=== PATIENT | male | born 1990 | race Caucasian/White ===

== ENCOUNTER 2024-07-27 23:48 | Inpatient (IN) | payer OTHER ==
[2024-07-28] MEDS ORDERED: LORazepam 2 MG/ML INJ IV PRN (00:41)
[2024-07-28] MEDS: ONDANSETRON 4 MG/2 ML VIAL IVP STA (00:50)
[2024-07-28] MEDS: LORazepam 2 MG/ML INJ IV STA ×4 (00:50→04:38)
[2024-07-28] MEDS: SODIUM CHLORIDE 0.9% 1,000 ML IV STA ×2 (01:03→01:20)
[2024-07-28] MEDS: PANTOPRAZOLE 40 MG/10 ML VIAL IVP STA (01:03)
[2024-07-28 01:55] LABS: Anisocytosis Slight; HCT 36.3 % (39.0-53.0); MCH 32.8 pg (25.0-35.0); MCHC 33.2 g/dL (31.0-37.0); MCV 98.9 fL (80.0-100.0); Macrocytosis Slight; Mean Platelet Volume 11.1; RBC 3.67 m/uL (4.30-5.90); RDW 17.3 % (11.5-15.5); WBC 4.7 k/uL (3.8-10.6)
[2024-07-28 02:06] LABS: ALT 284 U/L (4-49); AST 607 U/L (17-59); African American GFR (CKD) >90 (>60 ml/min/1.73 sqM); Albumin 3.1 g/dL (3.5-5.0); Alkaline Phosphatase 395 U/L (38-126); Amylase 45 U/L (30-110); Anion Gap 2 mmol/L; Blood Urea Nitrogen 11 mg/dL (9-20); Calcium 8.3 mg/dL (8.4-10.2); Carbon Dioxide 27 mmol/L (22-30); Chloride 102 mmol/L (98-107); Glucose 97 mg/dL (74-99); Lipase 560 U/L (23-300); Non-African American GFR(CKD) 81 (>60 ml/min/1.73 sqM); Potassium 3.4 mmol/L (3.5-5.1); Sodium 131 mmol/L (137-145); Total Protein 6.3 g/dL (6.3-8.2)
[2024-07-28 02:23] LABS: Band Neutrophils % 9 %; Lymphocytes # (M) 1.41 k/uL (1.0-4.8); Monocytes # (M) 0.05 k/uL (0-1.0); Neutrophils % (M) 60 %; Nucleated Red Blood Cells 0 /100 WBC (0-0); Total Cells Counted 100
[2024-07-28 02:24] LABS: Anisocytosis (M) Present; Target Cells Present
[2024-07-28 02:25] LABS: Platelet Count 77 k/uL (150-450); Stomatocytes Present
--- NOTE | 2024-07-28 02:58 | XR ---
EXAM: XR Chest, 1 View CLINICAL HISTORY: ITS.REASON XR Reason: abdominal pain TECHNIQUE: Frontal view of the chest. COMPARISON: No relevant prior studies available. FINDINGS: Lungs: Unremarkable. No consolidation. Pleural space: Unremarkable. No pneumothorax. Heart: Unremarkable. No cardiomegaly. Mediastinum: Unremarkable. Normal mediastinal contour. Bones/joints: Unremarkable. No acute fracture. IMPRESSION: No consolidation.
--- NOTE | 2024-07-28 02:58 | CT ---
EXAM: CT Head Without Intravenous Contrast CLINICAL HISTORY: ITS.REASON CT Reason: confusion, alcohol withdrawals TECHNIQUE: Axial computed tomography images of the head/brain without intravenous contrast. CTDI is 49.1 mGy and DLP is 1168.4 mGy-cm. This CT exam was performed using one or more of the following dose reduction techniques: automated exposure control, adjustment of the mA and/or kV according to patient size, and/or use of iterative reconstruction technique. COMPARISON: No relevant prior studies available. FINDINGS: No acute intracranial hemorrhage. No midline shift or mass effect. The territorial haines-white matter differentiation is maintained throughout. Age-related cerebral volume loss. Periventricular and subcortical white matter hypoattenuation, consistent with chronic microangiopathy. The visualized orbits appear grossly unremarkable. The calvarium is intact. The visualized paranasal sinuses and mastoid air cells are grossly clear. IMPRESSION: No acute intracranial hemorrhage, midline shift, or mass effect.
[2024-07-28 03:25] LABS: Appearance,Urine Clear (Clear); Bilirubin,Urine 1+ (Negative); Blood,Urine Moderate (Negative); Color,Urine Dark Yellow; Glucose,Urine (UA) Negative (Negative); Ketones,Urine Negative (Negative); Leukocyte Esterase,Urine Negative (Negative); Mucus,Urine Rare /hpf; Nitrite,Urine Negative (Negative); PH, Urine 7.5 (5.0-8.0); Protein,Urine Trace (Negative); RBC,Urine 141 /hpf (0-5); Specific Gravity,Urine 1.022 (1.001-1.035); WBC,Urine 1 /hpf (0-5)
[2024-07-28] MEDS ORDERED: ONDANSETRON 4 MG/2 ML VIAL IVP PRN (03:25)
[2024-07-28] MEDS ORDERED: IBUPROFEN 400 MG TAB PO PRN (03:25)
[2024-07-28] MEDS: LORazepam 2 MG/ML INJ IV PRN ×2 (03:25→08:39)
[2024-07-28] MEDS ORDERED: NALOXONE 0.4 MG/ML 1 ML VIAL IV PRN (03:25)
--- NOTE | 2024-07-28 03:37 | ED ---
General Adult HPI - General Chief complaint: Alcohol Stated complaint: ETOH Time Seen by Provider: 07/28/24 00:31 Source: patient, family, RN notes reviewed, old records reviewed Mode of arrival: ambulatory - History of Present Illness Initial comments: Is a 33-year-old male who presents emergency department for alcohol withdrawals. Was already admitted at [facility] earlier this week and evaluated by GI services at that time. Diagnosed with alcoholic hepatitis. Was discharged home. Last drink was over the weekend. Is currently manager student services. He has been acting confused, and is more shaky and agitated per his mother. Presents over concerns for worsening alcohol withdrawals. 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 Patient denies any chest pain, shortness of breath, abdominal pain, nausea, vomiting. Presents for further evaluation at this time. - Related Data Allergies Allergy/AdvReac Type Severity Reaction Status Date / Time No Known Allergies Allergy Verified 07/28/24 00:13 Review of Systems ROS Statement: Those systems with pertinent positive or pertinent negative responses have been documented in the HPI. Review of Systems: CONST: Denies fever EYES: Denies blurry vision ENT: Denies nasal congestion C/V: Denies Chest pain RESP: Denies shortness of breath GI: Denies abdominal pain : Denies dysuria SKIN: Denies rash. MSK: Denies joint pain. NEURO: Denies headache ROS Other: All systems not noted in ROS Statement are negative. General Exam - General Exam Comments Initial Comments: General: Appears in no acute distress. Tongue fasciculations, tremors, tachycardic. Appears to be in alcohol withdrawals. HEAD: Normal with no signs of head trauma. EYES: PERRLA, EOMI, conjunctiva normal, no discharge. ENT: Hearing grossly intact, normal oropharynx. RESPIRATORY: Clear breath sounds bilaterally. No wheezes, rales, or rhonchi. C/V: Regular rate and rhythm. S1 and S2 auscultated, no edema, peripheral pulses 2+ and intact throughout ABD: Abd is soft, nontender, nondistended EXT: Normal range of motion, no obvious deformity SKIN: No rashes or lesions observed on exposed skin. NEURO: Alert and oriented x 4. Cranial nerves II-XII intact. No focal sensory or strength deficits. Conversational confusion but is alert and oriented x 4. Course Vital Signs 07/28/24 07/28/24 07/28/24 00:04 01:30 02:00 Temperature 98.9 F Pulse Rate 149 H 102 H 94 Respiratory 18 16 16 Rate Blood Pressure 104/68 128/86 130/94 O2 Sat by Pulse 97 97 Oximetry 07/28/24 07/28/24 03:00 04:00 Temperature Pulse Rate 110 H 107 H Respiratory 14 12 Rate Blood Pressure 137/103 126/91 O2 Sat by Pulse 97 95 Oximetry Medical Decision Making - Medical Decision Making Was pt. sent in by a medical professional or institution (, PA, TERRAZZO MECHANIC HELPER, urgent care, hospital, or fdc...) When possible be specific @ -No Did you speak to anyone other than the patient for history (EMS, parent, family, police, friend...)? What history was obtained from this source @ -Patient's mother is the primary historian for the patient. Informed that patient was recently admitted to [facility] within the last 3 days and was discharged home and also saw Dr. Mary JOHNSON over this day and diagnosed with alcoholic hepatitis. Did you review nursing and triage notes (agree or disagree)? Why? @ -I reviewed and agree with nursing and triage notes Were old charts reviewed (outside hosp., previous admission, EMS record, old EKG, old radiological studies, urgent care reports/EKG's, fdc records)? Report findings @ -No old charts were reviewed Differential Diagnosis (chest pain, altered mental status, abdominal pain women, abdominal pain men, vaginal bleeding, weakness, fever, dyspnea, syncope, headache, dizziness, GI bleed, back pain, seizure, CVA, palpatations, mental health, musculoskeletal)? @ -Alcohol withdrawals, alcoholic hepatitis, dehydration. This list is not all inclusive. EKG interpreted by me (3pts min.). @ -As above X-rays interpreted by me (1pt min.). @ -Chest x-ray reveals no obvious acute cardiopulmonary process. CT interpreted by me (1pt min.). @ -CT brain reveals no evidence of acute intracranial process. U/S interpreted by me (1pt. min.). @ -None done What testing was considered but not performed or refused? (CT, X-rays, U/S, labs)? Why? @ -None What meds were considered but not given or refused? Why? @ -None Did you discuss the management of the patient with other professionals (professionals i.e. DrNicky, PA, TERRAZZO MECHANIC HELPER, lab, RT, psych nurse, social organization professor, metal room dental technician, teacher, parking enforcement officer, showcase trimmer)? Give summary @ -Discussed with Dr. Guillen who accepted the admission.I did speak with Dr. Guillen who states that the patient signed out AMA yesterday from [facility]. He was not discharged. Was smoking cessation discussed for >3mins.? @ -No Was critical care preformed (if so, how long)? @ -yes, 36 minutes Were there social determinants of health that impacted care today? How? ( Homelessness, low income, unemployed, alcoholism, drug addiction, transportation, low edu. Level, literacy, decrease access to med. care, halfway, rehab)? @ -No Was there de-escalation of care discussed even if they declined (Discuss DNR or withdrawal of care, Hospice)? DNR status @ -No What co-morbidities impacted this encounter? (DM, HTN, Smoking, COPD, CAD, Cancer, CVA, ARF, Chemo, Hep., AIDS, mental health diagnosis, sleep apnea, morbid obesity)? @ -Alcohol abuse, history of alcohol withdrawal Was patient admitted / discharged? Hospital course, mention meds given and route, prescriptions, significant lab abnormalities, going to OR and other pertinent info. @ -Patient presents emergency department for what appears to be alcohol withdrawals. 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 Patient does have conversational confusion. Patient given 3 mg IV push of Ativan with IV f luids and we will obtain basic labs including CT brain. Patient was in agreement this plan. Patient's mother in agreement this plan. Vitals remarkable for tachycardia. On reevaluation, patient is feeling improved. CIWA is improved at this time as well however we will still admit the patient. Labs showed the findings consistent with alcoholic hepatitis. Patient's CT brain showed no obvious acute process. Chest x-ray unremarkable. EKG shows no signs of acute ischemia. On reevaluation, patient is resting more comfortably at this time but we will admit for alcohol withdrawals. Patient and patient's mother in agreement this plan. CIWA at time of admission is 12-14.Patient given a dose of lactulose for hyperammonemia. I spoke with the admitting provider, Dr. Guillen who accepted the admission. Turns out that the patient left AMA from [facility]. Dr. Guillen states that patient did have workup for the LFT elevations in the alcoholic hepatitis. Was in agreement plan to hold any additional imaging at this time. We will reach out for records. Undiagnosed new problem with uncertain prognosis? @ -No Drug Therapy requiring intensive monitoring for toxicity (Heparin, Nitro, Insulin, Cardizem)? @ -No Were any procedures done? @ -No Diagnosis/symptom? @ -Alcohol withdrawals Acute, or Chronic, or Acute on Chronic? @ -Acute Uncomplicated (without systemic symptoms) or Complicated (systemic symptoms)? @ -Complicated Side effects of treatment? @ -No Exacerbation, Progression, or Severe Exacerbation? @ -No Poses a threat to life or bodily function? How? (Chest pain, [place], [place], pneumonia, PE, COPD, DKA, ARF, appy, cholecystitis, CVA, Diverticulitis, Homicidal, Suic idal, threat to staff... and all critical care pts) @ -Yes Diagnosis/symptom? @ -Hyperammonemia Acute, or Chronic, or Acute on Chronic? @ -Acute Uncomplicated (without systemic symptoms) or Complicated (systemic symptoms)? @ -Complicated Side effects of treatment? @ -None Exacerbation, Progression, or Severe Exacerbation] @ -No Poses a threat to life or bodily function? @ -Potentially, yes Diagnosis/symptom? @ -Alcoholic hepatitis Acute, or Chronic, or Acute on Chronic? @ -Chronic Uncomplicated (without systemic symptoms) or Complicated (systemic symptoms)? @ -Complicated Side effects of treatment? @ -None Exacerbation, Progression, or Severe Exacerbation] @ -No Poses a threat to life or bodily function? @ -Potentially, yes - Lab Data Result diagrams: 07/28/24 00:53 07/28/24 00:53 Lab Results 07/28/24 07/28/24 07/28/24 Range/Units 00:53 00:53 01:43 WBC 4.7 (3.8-10.6) k/uL RBC 3.67 L (4.30-5.90) m/uL Hgb 12.0 L (13.0-17.5) gm/dL Hct 36.3 L (39.0-53.0) % MCV 98.9 (80.0-100.0) fL MCH 32.8 (25.0-35.0) pg MCHC 33.2 (31.0-37.0) g/dL RDW 17.3 H (11.5-15.5) % Plt Count 77 L (150-450) k/uL MPV 11.1 Neutrophils % (Manual) 60 % Band Neuts % (Manual) 9 % Lymphocytes % (Manual) 30 % Monocytes % (Manual) 1 % Neutrophils # (Manual) 3.20 (1.3-7.7) k/uL Lymphocytes # (Manual) 1.41 (1.0-4.8) k/uL Monocytes # (Manual) 0.05 (0-1.0) k/uL Nucleated RBCs 0 (0-0) /100 WBC Manual Slide Review Performed Anisocytosis Slight Anisocytosis (manual) Present Macrocytosis Slight Target Cells Present Stomatocytes Present Sodium 131 L (137-145) mmol/L Potassium 3.4 L (3.5-5.1) mmol/L Chloride 102 (98-107) mmol/L Carbon Dioxide 27 (22-30) mmol/L Anion Gap 2 mmol/L BUN 11 (9-20) mg/dL Creatinine 1.17 (0.66-1.25) mg/dL Est GFR (CKD-EPI)AfAm >90 (>60 ml/min/1.73 sqM) Est GFR (CKD-EPI)NonAf 81 (>60 ml/min/1.73 sqM) Glucose 97 (74-99) mg/dL Calcium 8.3 L (8.4-10.2) mg/dL Total Bilirubin 5.0 H (0.2-1.3) mg/dL AST 607 H (17-59) U/L ALT 284 H (4-49) U/L Alkaline Phosphatase 395 H (38-126) U/L Ammonia (<30) umol/L Total Protein 6.3 (6.3-8.2) g/dL Albumin 3.1 L (3.5-5.0) g/dL Amylase 45 (30-110) U/L Lipase 560 H (23-300) U/L Urine Color Dark Yellow Urine Appearance Clear (Clear) Urine pH 7.5 (5.0-8.0) Ur Specific [place] 1.022 (1.001-1.035) Urine Protein Trace H (Negative) Urine Glucose (UA) Negative (Negative) Urine Ketones Negative (Negative) Urine Blood Moderate H (Negative) Urine Nitrite Negative (Negative) Urine Bilirubin 1+ H (Negative) Urine Urobilinogen 4.0 (<2.0) mg/dL Ur Leukocyte Esterase Negative (Negative) Urine RBC 141 H (0-5) /hpf Urine WBC 1 (0-5) /hpf Urine Mucus Rare H (None) /hpf 07/28/24 Range/Units 01:49 WBC (3.8-10.6) k/uL RBC (4.30-5.90) m/uL Hgb (13.0-17.5) gm/dL Hct (39.0-53.0) % MCV (80.0-100.0) fL MCH (25.0-35.0) pg MCHC (31.0-37.0) g/dL RDW (11.5-15.5) % Plt Count (150-450) k/uL MPV Neutrophils % (Manual) % Band Neuts % (Manual) % Lymphocytes % (Manual) % Monocytes % (Manual) % Neutrophils # (Manual) (1.3-7.7) k/uL Lymphocytes # (Manual) (1.0-4.8) k/uL Monocytes # (Manual) (0-1.0) k/uL Nucleated RBCs (0-0) /100 WBC Manual Slide Review Anisocytosis Anisocytosis (manual) Macrocytosis Target Cells Stomatocytes Sodium (137-145) mmol/L Potassium (3.5-5.1) mmol/L Chloride (98-107) mmol/L Carbon Dioxide (22-30) mmol/L Anion Gap mmol/L BUN (9-20) mg/dL Creatinine (0.66-1.25) mg/dL Est GFR (CKD-EPI)AfAm (>60 ml/min/1.73 sqM) Est GFR (CKD-EPI)NonAf (>60 ml/min/1.73 sqM) Glucose (74-99) mg/dL Calcium (8.4-10.2) mg/dL Total Bilirubin (0.2-1.3) mg/dL AST (17-59) U/L ALT (4-49) U/L Alkaline Phosphatase (38-126) U/L Ammonia 63 H (<30) umol/L Total Protein (6.3-8.2) g/dL Albumin (3.5-5.0) g/dL Amylase (30-110) U/L Lipase (23-300) U/L Urine Color Urine Appearance (Clear) Urine pH (5.0-8.0) Ur Specific [place] (1.001-1.035) Urine Protein (Negative) Urine Glucose (UA) (Negative) Urine Ketones (Negative) Urine Blood (Negative) Urine Nitrite (Negative) Urine Bilirubin (Negative) Urine Urobilinogen (<2.0) mg/dL Ur Leukocyte Esterase (Negative) Urine RBC (0-5) /hpf Urine WBC (0-5) /hpf Urine Mucus (None) /hpf - EKG Data -: EKG Interpreted by Me EKG Comments: 12-lead Electrocardiogram Interpretation Note EKG was reviewed and interpreted by myself. 12-lead ECG performed at 0119 is interpreted by me as revealing tachycardia at a rate of 102 beats per minute. [place] is normal. UT interval is 141 ms, QRS duration is 105 ms, QTc is 397 ms.. There were no ST or T wave abnormalities to suggest myocardial ischemia or injury. R wave progression across the precordium was satisfactory. By my interpretation this EKG is non-diagnostic for acute ischemia. Critical Care Time Critical Care Time: Yes Total Critical Care Time: 36 Disposition Clinical Impression: Alcohol use with withdrawal, Alcoholic hepatitis, Hyperammonemia Disposition: ADMITTED IP TO THIS HOSP Condition: Serious Time of Disposition: 03:20
[2024-07-28] MEDS: LACTULOSE 20 GM/30 ML CUP PO ONE (03:59)
[2024-07-28] MEDS: LACTULOSE 20 GM/30 ML CUP PO SCH (09:34)
--- NOTE | 2024-07-28 13:59 | P.CN ---
Psychiatric Consult - . Consult date: 07/28/24 Consult:: 07/28/24 13:48 IDENTIFYING DATA: This patient is a 33-year-old single male, unemployed living with girlfriend REASON FOR REFERRAL: Psychiatry was consulted for depression HISTORY OF PRESENT ILLNESS: The patient presented to the hospital on 07/28 with alcohol withdrawal. Patient was recently diagnosed with alcoholic hepatitis and was admitted to [facility] but was discharged today. Patient's mother noted patient to be acting bizarre. Ammonia was elevated and patient was given lactulose. CT head was negative. Patient was placed on CIWA and admitted. Patient reports feeling depressed lately given his inability to find a job and him failing as "the head of the household". He denies sleep difficulties, appetite changes, hopelessness, low energy. He reports drinking 2 double shots of vodka per day however he recently started going to [employer] meetings. He states roughly 1 month ago trying Lexapro and BuSpar however he stopped this after 1 day due to side effects. He appears to be contemplative in terms of his substance use as he realizes he has a problem however has not decided on rehab or not. Patient was strongly encouraged to consider rehab and he was recently given a list of local rehabs in the area. Patient was agreeable to starting medications for cravings however given his elevated liver enzymes, naltrexone is not appropriate and acamprosate would be a better option however there is a national shortage. Patient reported his depression as a 2 out of 10 in severity and given his elevated enzymes, will defer treatment for depression pending stabilization. At this time patient denies any suicidal or homicidal ideations, intent or plan. Patient denies any auditory, visual hallucinations and denies any paranoia or delusions. Patients admits to using alcohol and cannabis. PAST PSYCHIATRIC HISTORY: Patient has a a history of depression and anxiety. Patient denies being on any psychiatric medications. Patient reports recently trying Lexapro and BuSpar for 1 day however discontinued it due to adverse effects. Patient denies any previous psychiatric hospitalizations. Patient denies any psychiatric outpatient follow-up. Patient denies any history of suicide attempts in the past. PAST MEDICAL HISTORY: Alcoholic hepatitis. ALLERGIES: as per EMR. CHEMICAL DEPENDENCY HISTORY: as per HPI. FAMILY PSYCHIATRIC/SUBSTANCE USE HISTORY: Denies SOCIAL HISTORY: Patient has a girlfriend whom he stays with and has no children. He completed some college and is unemployed but actively looking for a job. He denied any legal history. MENTAL STATUS EXAM: General Appearance: Patient appears to be stated age is alert, pleasant, and cooperative. Patient appears to have fair hygiene and grooming wearing hospital gown with fair eye contact. Behavior: Patient is calmly lying in bed without any agitated behavior. Speech: Patient's speech is fluent and nonpressured. Mood/Affect: Patient reports their mood is "okay", affect is congruent Suicidality/Homicidality: Patient denies having any suicidal or homicidal ideation intent or plan. Perceptions: Patient denies any visual hallucinations and denies any auditory hallucinations Though content/process: There is no evidence of any delusional thought content and thought process is linear and goal-directed. Memory and concentration: AOX3, grossly intact for the purposes of this session. Can spell "WORLD" backwards Judgment and insight: Poor IMPRESSIONS: Alcohol use disorder, severe in withdrawal Depression, unspecified Rule out cannabis use disorder PLAN: -At this time patient DOES NOT meet criteria for inpatient psychiatric admission. -Would recommend the following medication changes/additions: Discussed with patient the potential to start acamprosate for maintenance of sobriety however there is a national shortage thus will defer this for outpatient. Given patient's elevated liver enzymes and mild depressive symptoms, the risks outweigh the benefits regarding starting antidepressant treatment and this will thus be deferred to outpatient pending stabilization in LFTs -CIWA protocol with PRN Ativan for alcohol withdrawal. Continue to monitor vital signs. -dye house vat worker to provide patient with outpatient mental health/psychiatry resources for appropriate follow up upon discharge -Building Inspection Engineer spoke with patient about substance abuse and the harmful effects on medical and mental health, patient verbally understood and agreed. -dye house vat worker to provide patient substance use treatment resources including AA/NA meetings in the community. -dye house vat worker to provide patient with access line number to call for inpatient substance rehab -Psychiatry will sign off at this time -Please contact with any questions.
[2024-07-28] MEDS: NICOTINE 21MG/24HR PATCH TRANSDERM SCH (16:12)
--- NOTE | 2024-07-28 16:23 | P.CONS ---
History of Present Illness - Reason for Consult Consult date: 07/28/24 Alcohol hepatitis Requesting physician: Onur Stearns - Chief Complaint Alcohol withdrawal - History of Present Illness This is a 33-year-old male who was recently hospitalized at [facility] this week and was seen just yesterday by gastroenterology. Apparently patient had left or was discharged sometime yesterday appears that patient may have drink some alcohol States that he was not feeling well so he came back to the hospital. Patient is confused and poor historian at this time. Apparently patient has long history of alcohol abuse and drinks liquor daily. Patient currently has a sitter he is very shaky. WBC 4.7 hemoglobin 12.0 platelet count 77,000 sodium 131 potassium 3.4 total bilirubin 5.0 AST 607 ALT 284 alkaline phosphatase 395 ammonia 63 lipase 560 Review of Systems ROS unobtainable: due to mental status Medications and Allergies Home Medications Medication Instructions Recorded Confirmed Type No Known Home Medications 07/28/24 07/28/24 History Allergies Allergy/AdvReac Type Severity Reaction Status Date / Time No Known Allergies Allergy Verified 07/28/24 08:29 Physical Exam Vitals: Vital Signs Temp Pulse Resp BP Pulse Ox 07/28/24 08:43 79 18 144/98 100 07/28/24 07:00 74 14 118/85 97 07/28/24 04:00 107 H 12 126/91 95 07/28/24 03:00 110 H 14 137/103 97 07/28/24 02:00 94 16 130/94 07/28/24 01:30 102 H 16 128/86 97 07/28/24 00:04 98.9 F 149 H 18 104/68 97 Intake and Output 07/27/24 07/28/24 07/28/24 22:59 06:59 14:59 Other: Weight 81.193 kg General appearance: The patient is shaky, confused, lethargic. HET: Head is normocephalic and atraumatic. Conjunctiva pink. Sclera anicteric. Neck: Supple without lymphadenopathy. Trachea midline. Heart: Regular. Lungs: Equal expansion, normal respiratory effort. Abdomen: Soft, nontender, nondistended. Skin: No rashes. Jaundice. Extremities: Normal skin color and turgor. No pedal edema. Neurological: Patient appears to be going through alcohol withdrawals he is very shaky, he is confused. Results CBC & Chem 7: 07/28/24 00:53 07/28/24 00:53 Labs: Abnormal Lab Results - Last 24 Hours (Table) 07/28/24 07/28/24 07/28/24 Range/Units 00:53 00:53 01:43 RBC 3.67 L (4.30-5.90) m/uL Hgb 12.0 L (13.0-17.5) gm/dL Hct 36.3 L (39.0-53.0) % RDW 17.3 H (11.5-15.5) % Plt Count 77 L (150-450) k/uL Sodium 131 L (137-145) mmol/L Potassium 3.4 L (3.5-5.1) mmol/L Calcium 8.3 L (8.4-10.2) mg/dL Total Bilirubin 5.0 H (0.2-1.3) mg/dL AST 607 H (17-59) U/L ALT 284 H (4-49) U/L Alkaline Phosphatase 395 H (38-126) U/L Ammonia (<30) umol/L Albumin 3.1 L (3.5-5.0) g/dL Lipase 560 H (23-300) U/L Urine Protein Trace H (Negative) Urine Blood Moderate H (Negative) Urine Bilirubin 1+ H (Negative) Urine RBC 141 H (0-5) /hpf Urine Mucus Rare H (None) /hpf 07/28/24 Range/Units 01:49 RBC (4.30-5.90) m/uL Hgb (13.0-17.5) gm/dL Hct (39.0-53.0) % RDW (11.5-15.5) % Plt Count (150-450) k/uL Sodium (137-145) mmol/L Potassium (3.5-5.1) mmol/L Calcium (8.4-10.2) mg/dL Total Bilirubin (0.2-1.3) mg/dL AST (17-59) U/L ALT (4-49) U/L Alkaline Phosphatase (38-126) U/L Ammonia 63 H (<30) umol/L Albumin (3.5-5.0) g/dL Lipase (23-300) U/L Urine Protein (Negative) Urine Blood (Negative) Urine Bilirubin (Negative) Urine RBC (0-5) /hpf Urine Mucus (None) /hpf Assessment and Plan (1) Alcoholic hepatitis Narrative/Plan: 33-year-old with alcohol dependence recently seen at [facility] likely patient had left AGAINST MEDICAL ADVICE and had presented here with similar symptoms of alcohol withdrawal symptoms weakness. Labs are actually trending down from prior in the week at [facility]. There is no further workup indicated. Recommend alcohol abstinence. Continue with [facility] protocol and treat patient for withdrawal symptoms. Current Visit: Yes Status: Acute Code(s): K70.10 - ALCOHOLIC HEPATITIS WITHOUT ASCITES SNOMED Code(s): 535879335 (2) Alcohol use with withdrawal Current Visit: Yes Status: Acute Code(s): F10.939 - ALCOHOL USE, UNSPECIFIED WITH WITHDRAWAL, UNSPECIFIED SNOMED Code(s): 486158076 (3) Hyperammonemia Current Visit: Yes Status: Acute Code(s): E72.20 - DISORDER OF UREA CYCLE METABOLISM, UNSPECIFIED SNOMED Code(s): 7795737 Plan: 1. Continue symptomatic supportive care 2. Protonix 40 mg for GI prophylaxis 3. Discussed with patient importance of alcohol abstinence 4. Continue lactulose 20 g 3 times daily 5. Repeat CBC, CMP, ammonia tomorrow 6. No further workup from gastroenterology 7. Continue with [facility] protocol, watch for alcohol withdrawal symptoms Thank you for this consultation, we will continue to follow. Dr. Jacob Hernandez I agree with the dictator's note, documented as a scribe by Magy Soto.
[2024-07-28] MEDS ORDERED: IPRATROPIUM-ALBUTEROL 3 ML NEB INHALATION PRN (22:16)
[2024-07-28] MEDS: HEPARIN SODIUM,PORCINE 5,000 UNIT/ML 1 ML VIAL SQ SCH (23:31)
[2024-07-28] MEDS: atenoloL 25 MG TAB PO ONE (23:32)
[2024-07-29] MEDS: METOPROLOL SUCCINATE (ER) 50 MG TAB.ER.24H PO SCH (08:37)
[2024-07-29] MEDS ORDERED: atenoloL 25 MG TAB PO SCH (09:00)
[2024-07-29 09:31] LABS: BUN/Creat Ratio 5.91 Ratio (12.00-20.00); Blood Urea Nitrogen 6.5 mg/dL (9.0-27.0); Carbon Dioxide 25.2 mmol/L (21.6-31.8); Chloride 105 mmol/L (96-109); Glucose 102 mg/dL (70-110); Lipase 101 U/L (14-60); Potassium 3.9 mmol/L (3.5-5.5); Sodium 140 mmol/L (135-145)
[2024-07-29 09:32] LABS: ALT 199 U/L (10-49); AST 277 U/L (14-35); Albumin/Globulin Ratio 1.25 Ratio (1.60-3.17); Alkaline Phosphatase 348 U/L (41-126); Calcium 8.8 mg/dL (8.7-10.3); Globulin 2.4 g/dL (1.6-3.3); Total Bilirubin 3.1 mg/dL (0.3-1.2); Total Protein 5.4 g/dL (6.2-8.2)
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
--- NOTE | 2024-07-29 11:46 | CA ---
Transthoracic Echo Report Name: Tim Nunn Age: 33 Gender: M : 1990 Exam Date: 07/29/2024 11:09 Exam Location: [facility] Ht (in): 69 Wt (lb): 179 Ordering Physician: Omar Guillen MD Attending/Referring Phys: Parts Designer Aditi Akbar RDCS Procedure CPT: Indications: rythm change/tachycardia Cardiac Hx: Technical Quality: Fair Contrast 1: Total Dose (mL): Contrast 2: Total Dose (mL): MEASUREMENTS (Male / Female) Normal Values 2D ECHO LV Diastolic Diameter PLAX 4.4 cm 4.2 - 5.9 / 3.9 - 5.3 cm LV Systolic Diameter PLAX 2.5 cm IVS Diastolic Thickness 1.3 cm 0.6 - 1.0 / 0.6 - 0.9 cm LVPW Diastolic Thickness 1.3 cm 0.6 - 1.0 / 0.6 - 0.9 cm LV Relative Wall Thickness 0.6 RV Internal Dim ED PLAX 2.7 cm LA Volume 36.1 cm??? 18 - 58 / 22 - 52 cm??? LA Volume Index 18.0 cm???/m??? 16 - 28 cm???/m??? M-MODE Aortic Root Diameter MM 3.2 cm LA Systolic Diameter MM 3.6 cm LA Ao Ratio MM 1.1 AV Cusp Separation MM 1.7 cm DOPPLER AV Peak Velocity 120.3 cm/s AV Peak Gradient 5.8 mmHg AV Mean Velocity 89.4 cm/s AV Mean Gradient 3.6 mmHg AV Velocity Time Integral 20.8 cm LVOT Peak Velocity 76.3 cm/s LVOT Peak Gradient 2.3 mmHg LVOT Velocity Time Integral 15.2 cm MV Area PHT 3.4 cm??? Mitral E Point Velocity 62.9 cm/s Mitral A Point Velocity 81.6 cm/s Mitral E to A Ratio 0.8 MV Deceleration Time 220.2 ms MV E' Velocity 5.7 cm/s Mitral E to MV E' Ratio 11.0 FINDINGS Left Ventricle Mildly increased left ventricular wall thickness. Left ventricular cavity size normal. Normal left ventricular systolic function with no obvious regional wall motion abnormalities. Left ventricular ejection fraction is estimated at 55-60 %. Right Ventricle Normal right ventricular size and function. Right ventricular systolic pressure within normal limits. Right Atrium Normal right atrial size. Left Atrium Normal left atrial size. Mitral Valve Structurally normal mitral valve. No mitral stenosis, regurgitation or prolapse. Aortic Valve Trileaflet aortic valve. No aortic valve stenosis or regurgitation. Tricuspid Valve Structurally normal tricuspid valve. Trace to mild tricuspid regurgitation. Pulmonic Valve Structurally normal pulmonic valve. Pericardium No pericardial effusion. Aorta Normal size aortic root and proximal ascending aorta. CONCLUSIONS Normal LV size and systolic function without any wall motion abnormality. Ejection fraction is 55%. No significant abnormality on the Doppler exam. No pericardial effusion but probable fat pad. Previewed by: Dr. Abbey Mckeon MD (Electronically Signed) Final Date: 29 July 2024 11:45
[2024-07-29 12:16] LABS: Basophils # (A) 0.03 X 10*3/uL (0.00-0.10); Basophils % (A) 0.8 %; Eosinophils # (A) 0.06 X 10*3/uL (0.04-0.35); Eosinophils % (A) 1.6 %; HCT 33.4 % (39.6-50.0); Lymphocytes # (A) 1.53 X 10*3/uL (0.90-5.00); Lymphocytes % (A) 41.6 %; MCH 32.2 pg (27.0-32.0); MCHC 32.9 g/dL (32.0-37.0); MCV 97.7 FL (80.0-97.0); Mean Platelet Volume 12.6 FL (9.5-12.2); Monocytes # (A) 0.26 X 10*3/uL (0.20-1.00); Monocytes % (A) 7.1 %; NRBC Per 100 WBC 0 X 10*3/uL (0.00-0.01); Neutrophils # (A) 1.78 X 10*3/uL (1.80-7.70); Neutrophils % (A) 48.4 %; Platelet Count 87 X 10*3/uL (140-440); RBC 3.42 X 10*6/uL (4.40-5.60); RDW 18.6 % (11.5-14.5); Target Cells 2+; WBC 3.68 X 10*3/uL (4.50-10.00)
--- NOTE | 2024-07-29 13:03 | P.PN ---
Subjective Progress Note Date: 07/29/24 Principal diagnosis: Alcoholic hepatitis This is a 33-year-old male who was recently hospitalized at [facility] this week and was seen just yesterday by gastroenterology. Apparently patient had left or was discharged sometime yesterday appears that patient may have drink some alcohol States that he was not feeling well so he came back to the hospital. Patient is confused and poor historian at this time. Apparently patient has long history of alcohol abuse and drinks liquor daily. Patient currently has a sitter he is very shaky. WBC 4.7 hemoglobin 12.0 platelet count 77,000 sodium 131 potassium 3.4 total bilirubin 5.0 AST 607 ALT 284 alkaline phosphatase 395 ammonia 63 lipase 560 07/29/2024 Patient is seen and examined today as a follow-up. He is still shaky but better than yesterday. He is more alert as well. He states he left AGAINST MEDICAL ADVICE from [facility] on Thursday. States he did not drink when he went home he has not drank in 8 days. He denies any abdominal pain, nausea or vomiting. He is sitting up eating breakfast. Today's labs WBC 3.6 hemoglobin 11.0 platelet count 87,000 sodium 140 potassium 3.9 BUN 6 creatinine 1.1 total bilirubin 3.1 AST 277 ALT 199 alkaline phosphatase 348 ammonia 18 Objective - Vital Signs Vital signs: Vital Signs Temp 98.3 F 07/29/24 07:36 Pulse 72 07/29/24 07:36 Resp 16 07/29/24 07:36 BP 132/87 07/29/24 07:36 Pulse Ox 100 07/29/24 07:36 FiO2 Intake & Output 07/28/24 07/29/24 07/29/24 18:59 06:59 18:59 Output Total 300 Balance -300 Weight 81.193 kg Output: Urine 300 Other: # Voids 1 1 # Bowel Movements 1 1 - Exam General appearance: The patient is alert, oriented, shaky/tremors, appears in no acute distress. HET: Head is normocephalic and atraumatic. Conjunctiva pink. Sclera anicteric. Neck: Supple without lymphadenopathy. Abdomen: Soft, nontender, nondistended. Extremities: Normal skin color and turgor. No pedal edema Skin: No rashes, jaundice. Neurological: No focal deficits. Alert and oriented. - Labs CBC & Chem 7: 07/29/24 05:42 07/29/24 05:42 Assessment and Plan (1) Alcoholic hepatitis Narrative/Plan: 33-year-old with alcohol dependence recently seen at [facility] likely patient had left AGAINST MEDICAL ADVICE and had presented here with similar symptoms of alcohol withdrawal symptoms weakness. Labs are actually trending down from prior in the week at [facility]. There is no further workup indicated. Recommend alcohol abstinence. Continue with CIWA protocol and treat patient for withdrawal symptoms. Current Visit: Yes Status: Acute Code(s): K70.10 - ALCOHOLIC HEPATITIS WITHOUT ASCITES SNOMED Code(s): 594660228 (2) Alcohol use with withdrawal Current Visit: Yes Status: Acute Code(s): F10.939 - ALCOHOL USE, UNSPECIFIED WITH WITHDRAWAL, UNSPECIFIED SNOMED Code(s): 825254454 (3) Hyperammonemia Narrative/Plan: Improved. Continue with lactulose. Current Visit: Yes Status: Acute Code(s): E72.20 - DISORDER OF UREA CYCLE METABOLISM, UNSPECIFIED SNOMED Code(s): 6396300 Plan: 1. Continue symptomatic supportive care 2. Protonix 40 mg for GI prophylaxis 3. Discussed with patient importance of alcohol abstinence and progression of cirrhosis of the liver 4. Continue lactulose 20 g 3 times daily, titrate to have 3-4 bowel movements daily 5. Continue with CIWA protocol, watch for alcohol withdrawal symptoms 6. Recommend outpatient follow-up with gastroenterology for alcohol hepatitis 7. Recommend inpatient rehab Thank you for this consultation, patient is cleared from gastroenterology for discharge once medically stable. Gastroenterology will sign off at this time. Dr. Jacob Hernandez I agree with the dictator's note, documented as a scribe by Magy Soto.
--- NOTE | 2024-07-30 01:33 | PN ---
PROGRESS NOTE A 33-year-old white male, alcohol withdrawal, depression, possible COPD. Continues on Ativan, Toprol-XL for hypertension and tachycardia, Habitrol for nicotine addiction, DuoNeb for his breathing. The patient is feeling much better. His white count is 3.6 and hemoglobin 11, platelets are decreased. Sodium 140, potassium 3.9, creatinine is 1.1, bilirubin 1.5 to 3.1. We will monitor in the morning, see what is going on. Order current treatment. Wait for psych consult to see what they recommend. He has updrafts. Moving around the room and probably he wants to go home soon. Prognosis guarded. Monitor bilirubin in the morning. Alcohol cessation recommended. Prognosis guarded. Please see further orders. MMODL / IJN: [id number] /
[2024-07-30 09:23] LABS: Basophils # (A) 0.03 X 10*3/uL (0.00-0.10); Basophils % (A) 0.7 %; Eosinophils # (A) 0.08 X 10*3/uL (0.04-0.35); Eosinophils % (A) 1.8 %; HCT 35.3 % (39.6-50.0); HGB 11.2 g/dL (13.0-17.0); Lymphocytes # (A) 1.79 X 10*3/uL (0.90-5.00); Lymphocytes % (A) 40.5 %; MCH 31.7 pg (27.0-32.0); MCHC 31.7 g/dL (32.0-37.0); Mean Platelet Volume 12.6 FL (9.5-12.2); Monocytes % (A) 6.8 %; NRBC Per 100 WBC 0 X 10*3/uL (0.00-0.01); Neutrophils # (A) 2.18 X 10*3/uL (1.80-7.70); Neutrophils % (A) 49.3 %; Platelet Count 90 X 10*3/uL (140-440); RBC 3.53 X 10*6/uL (4.40-5.60); WBC 4.42 X 10*3/uL (4.50-10.00)
[2024-07-30 09:39] LABS: ALT 172 U/L (10-49); AST 197 U/L (14-35); Albumin 3.2 g/dL (3.8-4.9); Albumin/Globulin Ratio 1.23 Ratio (1.60-3.17); Alkaline Phosphatase 349 U/L (41-126); Blood Urea Nitrogen 8.3 mg/dL (9.0-27.0); Calcium 9.4 mg/dL (8.7-10.3); Carbon Dioxide 24.4 mmol/L (21.6-31.8); Chloride 104 mmol/L (96-109); Globulin 2.6 g/dL (1.6-3.3); Glucose 100 mg/dL (70-110); Potassium 4.3 mmol/L (3.5-5.5); Sodium 139 mmol/L (135-145); Total Bilirubin 2.5 mg/dL (0.3-1.2); Total Protein 5.8 g/dL (6.2-8.2)
--- NOTE | 2024-07-30 22:41 | PN ---
PROGRESS NOTE SUBJECTIVE: . Liver enzymes are still high. His bilirubin is still high, dropped from 3.1 to 2.5. Thyroid is normal. OBJECTIVE: CARDIOVASCULAR: S1 and S2. LUNGS: Transmitted upper sounds. GI: Soft. HEMATOLOGY: Negative Homans. PSYCH: Fair mood and affect. echo, which came out really pretty good. Cardiology cleared for discharge. Prognosis guarded. Continue on possible alcohol suppression medicine when he goes home. When he started withdrawing, I possibly send him home. Needs psychiatry medications for possible long-term depression. He has had maybe some alcohol suppression medications. MMODL / IJN: [id number] /
[2024-07-31 07:58] VITALS: RESP 16
[2024-07-31 09:37] LABS: ALT 163 U/L (10-49); AST 160 U/L (14-35); Albumin 3.5 g/dL (3.8-4.9); Albumin/Globulin Ratio 1.09 Ratio (1.60-3.17); Alkaline Phosphatase 351 U/L (41-126); BUN/Creat Ratio 7.55 Ratio (12.00-20.00); Blood Urea Nitrogen 8.3 mg/dL (9.0-27.0); Calcium 9.7 mg/dL (8.7-10.3); Carbon Dioxide 24.3 mmol/L (21.6-31.8); Chloride 102 mmol/L (96-109); Globulin 3.2 g/dL (1.6-3.3); Glucose 90 mg/dL (70-110); Potassium 4.4 mmol/L (3.5-5.5); Sodium 139 mmol/L (135-145); Total Bilirubin 2.2 mg/dL (0.3-1.2); Total Protein 6.7 g/dL (6.2-8.2)
[2024-07-31 09:47] LABS: Basophils # (A) 0.04 X 10*3/uL (0.00-0.10); Basophils % (A) 0.8 %; Eosinophils # (A) 0.08 X 10*3/uL (0.04-0.35); Eosinophils % (A) 1.6 %; HCT 38.2 % (39.6-50.0); Lymphocytes # (A) 1.88 X 10*3/uL (0.90-5.00); Lymphocytes % (A) 36.7 %; MCHC 31.4 g/dL (32.0-37.0); MCV 101.9 FL (80.0-97.0); Mean Platelet Volume 12.6 FL (9.5-12.2); Monocytes # (A) 0.41 X 10*3/uL (0.20-1.00); NRBC Per 100 WBC 0 X 10*3/uL (0.00-0.01); Neutrophils # (A) 2.65 X 10*3/uL (1.80-7.70); Neutrophils % (A) 51.7 %; Platelet Count 107 X 10*3/uL (140-440); RBC 3.75 X 10*6/uL (4.40-5.60); RDW 19.4 % (11.5-14.5); WBC 5.12 X 10*3/uL (4.50-10.00)
[2024-07-31] MEDS: NALTREXONE HCL 50 MG TAB PO SCH (13:59)
[2024-07-31] MEDS: lamoTRIgine 25 MG TAB PO SCH (21:16)
[2024-07-31] MEDS: QUEtiapine 25 MG TAB PO SCH (21:18)
--- NOTE | 2024-08-01 02:50 | PN ---
PROGRESS NOTE Patient remains on DuoNeb for COPD. Naltrexone will be started for alcohol suppression Lamictal 50 b.i.d. for antidepressant. He failed SSRIs as an outpatient. Most likely he has bipolar as mind races. He may need a bipolar medications at night due to his mind racing. PHYSICAL EXAMINATION: VITAL SIGNS: Temperature 98.1, pulse 72, respiratory rate 16 to 18, blood pressure 109/67, and 100% on room air. Lungs: Clear. CARDIOVASCULAR: S1, S2. HEMATOLOGY: Negative Homans. PSYCH: Fair mood and affect. PLAN: Continue current treatment as mentioned above and possibly he had a low-dose Seroquel at night as he appears to be bipolar too. Alcohol dependence, continue naltrexone. Go to [facility] on Thursday. Please see further orders. MMODL / IJN: [id number] /
[2024-08-01 12:48] VITALS: BP 138/70; PULSE 67; TEMP 97.8
== END 2024-08-01 18:18 | disposition home or self-care (01) | DRG 897 ==
LOC: EC 23:48 → 5NMEDONC 07-28 03:26
PROVIDERS: ADMIT Family Medicine; ATTEND Family Medicine
DX: F10.239 Alcohol dependence with withdrawal, unspecified (principal); E72.20 Disorder of urea cycle metabolism, unspecified; D69.6 Thrombocytopenia, unspecified; F32.A Depression, unspecified; J44.9 Chronic obstructive pulmonary disease, unspecified; I10 Essential (primary) hypertension; K70.10 Alcoholic hepatitis without ascites; F17.200 Nicotine dependence, unspecified, uncomplicated; E87.6 Hypokalemia; R00.0 Tachycardia, unspecified
CPT/HCPCS: 36415; 70450; 71045; 80053; 81001; 82140; 82150; 83690; 84443; 84484; 85025; 93005; 93306; 96361; 96374; 96375; 96376; 99285